=== PATIENT | female | born 1985 | race Two or more races ===

== ENCOUNTER 2017-07-07 20:57 | Emergency (ER) | payer MEDICAID ==
[~2017-07-07] VITALS: Ht 165.1 cm; Wt 81.6 kg
[2017-07-08 03:00] VITALS: BP 116/72
[2017-07-08] MEDS ORDERED: TETANUS-DIPTH-ACEL PERTUSSIS 0.5ML SYRG IM ONE (03:30)
== END 2017-07-08 04:49 | disposition home or self-care (01) ==
LOC: ER 20:57
DX: S61.212A Laceration without foreign body of right middle finger without damage to nail, initial encounter (principal); S61.210A Laceration without foreign body of right index finger without damage to nail, initial encounter; W25.XXXA Contact with sharp glass, initial encounter; Y93.G9 Activity, other involving cooking and grilling; Y92.89 Other specified places as the place of occurrence of the external cause; Y99.8 Other external cause status
CPT/HCPCS: 12001; 90471; 90715

== ENCOUNTER 2019-12-03 11:48 | Inpatient (IN) | payer MEDICAID ==
[~2019-12-03] VITALS: Ht 165.1 cm; Wt 85.3 kg
[2019-12-03] MEDS ORDERED: LACT. RINGERS/OXYTOCIN 20UNITS 1,000 ML IV ONE (11:53)
[2019-12-03] MEDS ORDERED: DERMOPLAST 60ML BOTTLE TOP ONE (11:54)
[2019-12-03] MEDS ORDERED: LIDOCAINE 2%HCL (LOCAL ANESTH.) INJ 20ML MDV ONE (11:54)
[2019-12-03] MEDS ORDERED: LACTATED RINGER'S 1,000 ML IV SCH (12:20)
[2019-12-03] MEDS ORDERED: LACT. RINGERS/OXYTOCIN 20UNITS 500 ML IV ONE (12:20)
[2019-12-03] MEDS ORDERED: ACETAMINOPHEN 325 MG TAB PO PRN (12:30)
[2019-12-03 12:53] LABS: Basophils # (auto) 0 10 ^3/uL (0-0.2); Basophils % (auto) 0.3 % (0.0-2.0); Eosinophils # (auto) 0 10 ^3/uL (0-0.8); Eosinophils % (auto) 0.3 % (0.0-7.0); Hematocrit 36.7 % (36.0-46.0); Hemoglobin 12.3 g/dL (12.2-16.2); Lymphocytes # (auto) 0.6 10 ^3/uL (0.4-5.4); Lymphocytes % (auto) 5.7 % (10.0-50.0); Mean Corpuscular Hemoglobin 30.7 pg (28.0-32.0); Mean Corpuscular Hgb Conc. 33.4 g/dL (32.0-36.0); Monocytes # (auto) 0.3 10 ^3/uL (0-1.3); Monocytes % (auto) 3.1 % (0.0-12.0); Neutrophils # (auto) 9.6 10 ^3/uL (1.6-8.6); Neutrophils % (auto) 90.6 % (37.0-80.0); Platelet Count (auto) 155 10^3/uL (140-450); Red Blood Cells 3.99 10^6/uL (4.0-5.20); Red Cell Distribution Width 13.9 % (11.8-14.3); White Blood Cell 10.5 10^3/uL (4.4-10.8)
--- NOTE | 2019-12-03 13:06 | NUR ---
Ambulation: Patient OOB with standby assistance by RN. Patient ambulated to bathroom with steady gait. Patient able to void 150 CC without difficulty. [facility] teaching provided with returned demonstration by patient. Clean gown provided and bed linen changed. Patient ambulated back to bed with steady gait and no distress noted.
[2019-12-03 13:07] LABS: INR 0.96 (0.9-1.15); Partial Thromboplastin Time 29.1 sec (23.64-32.05)
[2019-12-03 13:11] LABS: Albumin 2.5 g/dL (3.4-5.0); Calcium 8.1 mg/dL (8.5-10.1); Potassium 3.4 mmol/L (3.5-5.1)
[2019-12-03] MEDS ORDERED: WITCH HAZEL-GLYCERIN PAD TOP PRN (13:15)
[2019-12-03] MEDS ORDERED: PHISODERM TOP SOLN 240ML BTL TOP PRN (13:15)
[2019-12-03] MEDS ORDERED: DERMOPLAST 60ML BOTTLE TOP PRN (13:15)
[2019-12-03 13:20] LABS: BUN/Creatinine Ratio 11.8; Bilirubin, Total 0.2 mg/dL (0.2-1.0); Total Protein 6.2 g/dL (6.4-8.2)
[2019-12-03] MEDS ORDERED: LACT. RINGERS/OXYTOCIN 20UNITS 1,000 ML IV SCH (13:20)
[2019-12-03] MEDS: IBUPROFEN 600 MG TAB PO PRN (13:24)
[2019-12-03 13:54] VITALS: BP 100/58
[2019-12-03 17:39] VITALS: BP 105/55
[2019-12-03 19:00] VITALS: BP 105/58
[2019-12-03 23:13] VITALS: BP 118/56
[2019-12-04] MEDS ORDERED: TETANUS-DIPTH-ACEL PERTUSSIS 0.5ML SYR Tdap IM ONE (02:30)
[2019-12-04 03:00] VITALS: BP 106/59
[2019-12-04] MEDS: IBUPROFEN 600 MG TAB PO PRN (03:10)
[2019-12-04 05:56] LABS: Urine Bacteria FEW /hpf (None Seen); Urine Blood 3+ /uL (Negative); Urine Specific Gravity 1.015 (1.001-1.035); Urine WBC 388 /hpf (0 - 5)
[2019-12-04 06:08] LABS: Amphetamine Screen, Urine NEGATIVE (NEGATIVE); Barbiturate Scree,Urine NEGATIVE (NEGATIVE); Benzodiazephine Screen, Urine NEGATIVE (NEGATIVE); Cannabinoid Screen, Urine NEGATIVE (NEGATIVE); Cocaine Screen, Urine NEGATIVE (NEGATIVE); Opiate Scree,Urine NEGATIVE (NEGATIVE); Phencyclidine Screen, Urine NEGATIVE (NEGATIVE)
[2019-12-04 06:16] LABS: Alcohol, Urine < 3.0 mg/dL (0-10)
[2019-12-04 07:00] VITALS: BP 124/55
[2019-12-04] MEDS ORDERED: PREN-96 PO (07:03)
[2019-12-04 11:50] VITALS: BP 126/59
--- NOTE | 2019-12-04 11:51 | NUR ---
Discharge: Discharge instructions given as ordered. Pt encouraged to follow up with [facility] as instructed. All questions and concerns addressed. Patient verbalized understanding. Medication reconciliation completed and copy given to patient. All required/requested vaccines given and copies of vaccinations given to patient. Patient encouraged to prepare to depart unit. patient states her ride should be here around 2-3 pm
--- NOTE | 2019-12-04 14:10 | NUR ---
Discharge: Patient taken to vehicle via AMBULATED with all personal belongings, accompanied by staff DEEPAK Santos and family member. No distress noted at time of departure, no adverse changes in status since initial assessment.
== END 2019-12-04 14:10 | disposition home or self-care (01) | DRG 560 ==
LOC: OBSVTOIN 11:48 → LDRP 11:48
PROVIDERS: ADMIT Specialist; ATTEND Specialist
PROC: 10E0XZZ Delivery of Products of Conception, External Approach (ICD-10-PCS; principal; 2019-12-03)
DX: O62.3 Precipitate labor (principal); Z37.0 Single live birth; Z3A.37 37 weeks gestation of pregnancy
CPT/HCPCS: 36415; 59025; 59409; 80053; 80307; 81001; 81002; 84112; 85025; 85610; 85730; 86850; 86900; 86901; 90715; 96372; 96374; G0378; J2590